=== PATIENT | female | born 1975 | race Caucasian/White ===

== ENCOUNTER 2019-05-13 22:33 | Emergency (ER) | payer OTHER ==
[~2019-05-13] VITALS: Ht 162.6 cm; Wt 53.5 kg
[2019-05-13] MEDS ORDERED: CLOP75 PO (22:48)
[2019-05-13] MEDS ORDERED: ASPI81CH PO (22:48)
== END 2019-05-13 23:58 | disposition home or self-care (01) ==
LOC: ER 22:33
DX: S62.632A Displaced fracture of distal phalanx of right middle finger, initial encounter for closed fracture (principal); Z88.5 Allergy status to narcotic agent; Z79.82 Long term (current) use of aspirin; Z79.899 Other long term (current) drug therapy; Z86.73 Personal history of transient ischemic attack (TIA), and cerebral infarction without residual deficits; W23.0XXA Caught, crushed, jammed, or pinched between moving objects, initial encounter
CPT/HCPCS: 29130; 73130; 99283-25

== ENCOUNTER 2019-07-21 00:08 | Emergency (ER) | payer OTHER ==
[~2019-07-21] VITALS: Ht 162.6 cm; Wt 52.6 kg
[~2019-07-21 00:08] MED LIST: ASPI81CH PO; CLOP75 PO
== END 2019-07-21 01:35 | disposition home or self-care (01) ==
LOC: ER 00:08
DX: S93.401A Sprain of unspecified ligament of right ankle, initial encounter (principal); Z88.5 Allergy status to narcotic agent; Z79.82 Long term (current) use of aspirin; Z79.899 Other long term (current) drug therapy; W01.0XXA Fall on same level from slipping, tripping and stumbling without subsequent striking against object, initial encounter
CPT/HCPCS: 73610; 99283-25

== ENCOUNTER → 2020-02-02 | Outpatient (CLI) | payer OTHER ==
[2020-02-02 14:19] LABS: Source, Urine Clean Catch
[2020-02-02 18:32] LABS: Bilirubin, Urine Neg (Neg); Blood, Urine 5+ (Neg); Glucose Qualitative, Urine Neg (Neg); Ketones, Urine Neg (Neg); Leukocyte Esterase, Urine Neg (Neg); Nitrite, Urine Neg (Neg); Protein, Urine Neg (Neg); Urobilinogen, Urine NORM (Normal)
[2020-02-02 18:44] LABS: Appearance, Urine Clear (Clear); Color, Urine Yellow (P-Yellow)
[2020-02-02 18:46] LABS: Squamous Epithelial Cells Rare /hpf (Few); White Blood Cells, Urine 0-2 /hpf (0-5)
[2020-02-02 18:47] LABS: Bacteria Not Seen /hpf; Urine Culture Indicated No (No)
== END | disposition home or self-care (01) ==
PROVIDERS: Nurse Practitioner Family
DX: R10.9 Unspecified abdominal pain (principal)

== ENCOUNTER → 2020-02-15 | Outpatient (CLI) | payer OTHER ==
[~2020-02-15] MED LIST changes: +IBUP400 PO
== END | disposition home or self-care (01) ==
LOC: LAB 14:42 → LAB SHORT 14:42
DX: R31.1 Benign essential microscopic hematuria (principal)
CPT/HCPCS: 87086

== ENCOUNTER 2020-02-17 12:20 | Emergency (ER) | payer OTHER ==
[~2020-02-17] VITALS: Ht 162.6 cm; Wt 51.7 kg
[~2020-02-17 12:20] MED LIST changes: -IBUP400 PO
[2020-02-17 13:15] LABS: BASOPHILS ABSOLUTE AUTO 0.07 K/mm3 (0.00-0.23); BASOPHILS PERCENT AUTO 1 % (0-2); EOSINOPHILS ABSOLUTE AUTO 0.18 K/mm3 (0.00-0.68); EOSINOPHILS PERCENT AUTO 3 % (0-6); Hematocrit 33.1 % (33.0-51.0); Hemoglobin 10.1 g/dL (11.5-16.0); IMMATURE GRAN ABSOLUTE AUTO 0.02 K/mm3 (0.00-0.10); IMMATURE GRAN PERCENT AUTO 0 % (0-1); LYMPHOCYTES ABSOLUTE AUTO 1.52 K/mm3 (0.84-5.20); LYMPHOCYTES PERCENT AUTO 26 % (21-46); MONOCYTES ABSOLUTE AUTO 0.44 K/mm3 (0.16-1.47); MONOCYTES PERCENT AUTO 8 % (4-13); Mean Corpuscular HGB 27.7 pg (26.0-34.0); Mean Corpuscular HGB Conc 30.5 g/dL (31.5-36.5); Mean Corpuscular Volume 91 fL (80-100); Mean Platelet Volume 9.8 fL (9.1-12.4); NEUTROPHILS ABSOLUTE AUTO 3.61 K/mm3 (1.96-9.15); NEUTROPHILS PERCENT AUTO 62 % (41-73); Platelet Count 382 K/mm3 (150-400); RDW Coefficient Variation 13.1 % (11.7-14.2); RDW Standard Deviation 43.3 fL (35.1-46.3); Red Blood Cell Count 3.64 M/mm3 (3.80-5.20); White Blood Cell Count 5.84 K/mm3 (4.00-11.30)
[2020-02-17 13:38] LABS: Alanine Aminotransfer (ALT/SGP 18 U/L (12-78); Albumin, Blood 3.8 g/dL (3.4-5.0); Alk Phos 63 U/L (50-136); Anion Gap 4 mmol/L (6-16); Aspartate Aminotrans (AST/SGOT 14 U/L (12-37); Bilirubin, Total 0.7 mg/dL (0.1-1.0); Blood Urea Nitrogen 9 mg/dL (8-24); Bun/Creatinine Ratio 18.6 (12.0-20.0); CO2, Blood 24 mmol/L (21-32); Calcium, Blood 8.5 mg/dL (8.5-10.1); Chloride, Blood 111 mmol/L (98-108); Creatinine, Blood 0.48 mg/dL (0.40-1.00); Globulin, Blood 3.9 g/dL (2.2-4.0); Glomerular Filtration Rate >60 (60-); Glucose, Blood 86 mg/dL (70-99); Potassium, Blood 3.7 mmol/L (3.5-5.5); Sodium, Blood 139 mmol/L (136-145); Total Protein, Blood 7.7 g/dL (6.4-8.2)
[2020-02-17 17:43] LABS: Source, Urine Clean Catch
[2020-02-17 17:51] LABS: Bilirubin, Urine Neg (Neg); Blood, Urine 5+ (Neg); Glucose Qualitative, Urine Neg (Neg); Ketones, Urine 1+ (Neg); Leukocyte Esterase, Urine Neg (Neg); Nitrite, Urine Neg (Neg); Protein, Urine 4+ (Neg); Specific Gravity, Urine 1.015 (1.003-1.022); Urobilinogen, Urine NORM (Normal)
[2020-02-17 18:00] LABS: Appearance, Urine Bloody (Clear); Color, Urine Red (P-Yellow)
[2020-02-17 18:02] LABS: Bacteria Few /hpf; Red Blood Cells, Urine TNTC /hpf (0-2); Squamous Epithelial Cells Few /hpf (Few)
[2020-02-17] MEDS ORDERED: IBUP400 PO (18:12)
== END 2020-02-17 18:18 | disposition home or self-care (01) ==
LOC: ER 12:20
PROVIDERS: Physician Assistant
DX: N92.0 Excessive and frequent menstruation with regular cycle (principal); Z88.5 Allergy status to narcotic agent; Z79.899 Other long term (current) drug therapy; Z79.82 Long term (current) use of aspirin; Z86.73 Personal history of transient ischemic attack (TIA), and cerebral infarction without residual deficits; Z87.891 Personal history of nicotine dependence
CPT/HCPCS: 36415; 76770; 80053; 81001; 81025; 83690; 85025; 87086; 99284-25

== ENCOUNTER → 2020-04-03 | Outpatient (CLI) | payer OTHER ==
[~2020-04-03] MED LIST changes: +IBUP400 PO
== END | disposition home or self-care (01) ==
LOC: LAB SHORT 08:07 → PLD 08:07
DX: D22.5 Melanocytic nevi of trunk (principal)
CPT/HCPCS: 88305

== ENCOUNTER → 2020-09-28 | Outpatient (CLI) | payer OTHER ==
[~2020-09-28] MED LIST changes: +CIPRO500 MG/51 PO; +ERGO50000 PO; +FLAGYL500 M1 PO; +IRON18 MG; +Simvastatin20 MG PO
[2020-09-28 17:18] LABS: BASOPHILS ABSOLUTE AUTO 0.06 K/mm3 (0.00-0.23); BASOPHILS PERCENT AUTO 1 % (0-2); EOSINOPHILS ABSOLUTE AUTO 0.07 K/mm3 (0.00-0.68); EOSINOPHILS PERCENT AUTO 1 % (0-6); Hematocrit 31.6 % (33.0-51.0); Hemoglobin 9.7 g/dL (11.5-16.0); IMMATURE GRAN ABSOLUTE AUTO 0.02 K/mm3 (0.00-0.10); IMMATURE GRAN PERCENT AUTO 0 % (0-1); LYMPHOCYTES ABSOLUTE AUTO 1.77 K/mm3 (0.84-5.20); LYMPHOCYTES PERCENT AUTO 27 % (21-46); MONOCYTES ABSOLUTE AUTO 0.33 K/mm3 (0.16-1.47); MONOCYTES PERCENT AUTO 5 % (4-13); Mean Corpuscular HGB 25.6 pg (26.0-34.0); Mean Corpuscular HGB Conc 30.7 g/dL (31.5-36.5); Mean Corpuscular Volume 83 fL (80-100); Mean Platelet Volume 10.1 fL (9.1-12.4); NEUTROPHILS ABSOLUTE AUTO 4.37 K/mm3 (1.96-9.15); NEUTROPHILS PERCENT AUTO 66 % (41-73); Platelet Count 377 K/mm3 (150-400); RDW Standard Deviation 45.2 fL (35.1-46.3); Red Blood Cell Count 3.79 M/mm3 (3.80-5.20); White Blood Cell Count 6.62 K/mm3 (4.00-11.30)
[2020-09-28 17:35] LABS: Alanine Aminotransfer (ALT/SGP 25 U/L (12-78); Albumin, Blood 4.2 g/dL (3.4-5.0); Albumin/Globulin Ratio 1.1 (0.8-1.8); Alk Phos 67 U/L (40-126); Anion Gap 9 mmol/L (6-16); Aspartate Aminotrans (AST/SGOT 16 U/L (12-37); Bilirubin, Total 0.3 mg/dL (0.1-1.0); Blood Urea Nitrogen 9 mg/dL (8-24); CO2, Blood 26 mmol/L (21-32); Calcium, Blood 8.9 mg/dL (8.5-10.1); Chloride, Blood 103 mmol/L (98-108); Globulin, Blood 3.8 g/dL (2.2-4.0); Glomerular Filtration Rate >60 (60-); Glucose, Blood 97 mg/dL (70-99); Potassium, Blood 3.7 mmol/L (3.5-5.5); Sodium, Blood 138 mmol/L (136-145); Thyroid Stimulating Hormone 1.619 uIU/mL (0.360-4.800)
[2020-09-28 19:42] LABS: Percent Saturation 3.8 % (15.0-50.0)
== END | disposition home or self-care (01) ==
LOC: EFM RAD 17:10
PROVIDERS: Chiropractor
DX: R07.89 Other chest pain (principal); R53.83 Other fatigue; D64.9 Anemia, unspecified
CPT/HCPCS: 80053; 82728; 83540; 83550; 84443; 84484; 85025; 85060; 85379

== ENCOUNTER 2020-10-13 10:28 | Emergency (ER) | payer OTHER ==
[~2020-10-13] VITALS: Ht 170.2 cm; Wt 54.4 kg
[~2020-10-13 10:28] MED LIST changes: -CIPRO500 MG/51 PO; -ERGO50000 PO; -FLAGYL500 M1 PO; -IRON18 MG; -Simvastatin20 MG PO
[2020-10-13 10:58] LABS: BASOPHILS ABSOLUTE AUTO 0.05 K/mm3 (0.00-0.23); BASOPHILS PERCENT AUTO 1 % (0-2); EOSINOPHILS ABSOLUTE AUTO 0.06 K/mm3 (0.00-0.68); EOSINOPHILS PERCENT AUTO 1 % (0-6); Hematocrit 31.8 % (33.0-51.0); Hemoglobin 9.3 g/dL (11.5-16.0); IMMATURE GRAN ABSOLUTE AUTO 0.01 K/mm3 (0.00-0.10); IMMATURE GRAN PERCENT AUTO 0 % (0-1); LYMPHOCYTES ABSOLUTE AUTO 1.39 K/mm3 (0.84-5.20); LYMPHOCYTES PERCENT AUTO 22 % (21-46); MONOCYTES ABSOLUTE AUTO 0.39 K/mm3 (0.16-1.47); MONOCYTES PERCENT AUTO 6 % (4-13); Mean Corpuscular HGB 24.9 pg (26.0-34.0); Mean Corpuscular HGB Conc 29.2 g/dL (31.5-36.5); Mean Corpuscular Volume 85 fL (80-100); Mean Platelet Volume 9.3 fL (9.1-12.4); NEUTROPHILS ABSOLUTE AUTO 4.46 K/mm3 (1.96-9.15); NEUTROPHILS PERCENT AUTO 70 % (41-73); Platelet Count 408 K/mm3 (150-400); RDW Coefficient Variation 14.4 % (11.7-14.2); RDW Standard Deviation 44.5 fL (35.1-46.3); Red Blood Cell Count 3.73 M/mm3 (3.80-5.20); White Blood Cell Count 6.36 K/mm3 (4.00-11.30)
[2020-10-13 11:16] LABS: Alanine Aminotransfer (ALT/SGP 42 U/L (12-78); Albumin, Blood 3.9 g/dL (3.4-5.0); Alk Phos 83 U/L (50-136); Anion Gap 6 mmol/L (6-16); Aspartate Aminotrans (AST/SGOT 26 U/L (12-37); Bilirubin, Total 0.7 mg/dL (0.1-1.0); Blood Urea Nitrogen 10 mg/dL (8-24); Bun/Creatinine Ratio 20.8 (12.0-20.0); CO2, Blood 27 mmol/L (21-32); Calcium, Blood 8.7 mg/dL (8.5-10.1); Chloride, Blood 108 mmol/L (98-108); Creatinine, Blood 0.48 mg/dL (0.40-1.00); Globulin, Blood 4.1 g/dL (2.2-4.0); Glomerular Filtration Rate >60 (60-); Glucose, Blood 115 mg/dL (70-99); Potassium, Blood 3.7 mmol/L (3.5-5.5); Sodium, Blood 141 mmol/L (136-145)
[2020-10-13 12:25] LABS: Source, Urine Clean Catch
[2020-10-13 12:38] LABS: Appearance, Urine Clear (Clear); Bilirubin, Urine Neg (Neg); Blood, Urine 1+ (Neg); Color, Urine Yellow (P-Yellow); Glucose Qualitative, Urine Neg (Neg); Ketones, Urine Neg (Neg); Leukocyte Esterase, Urine 1+ (Neg); Nitrite, Urine Neg (Neg); Protein, Urine Neg (Neg); Specific Gravity, Urine 1.025 (1.003-1.022); Urobilinogen, Urine NORM (Normal)
[2020-10-13 12:51] LABS: Bacteria Many /hpf; Red Blood Cells, Urine 0-2 /hpf (0-2); Squamous Epithelial Cells Mod /hpf (Few)
[2020-10-13] MEDS ORDERED: IRON18 MG (13:17)
[2020-10-13] MEDS ORDERED: ERGO50000 PO (13:17)
[2020-10-13] MEDS ORDERED: FLAGYL500 M1 PO (15:53)
[2020-10-13] MEDS ORDERED: CIPRO500 MG/51 PO (15:53)
== END 2020-10-13 16:05 | disposition home or self-care (01) ==
LOC: ER 10:28
PROVIDERS: Physician Assistant
DX: N39.0 Urinary tract infection, site not specified (principal); N20.0 Calculus of kidney; N83.202 Unspecified ovarian cyst, left side; D64.9 Anemia, unspecified; Z79.02 Long term (current) use of antithrombotics/antiplatelets; Z79.82 Long term (current) use of aspirin; Z79.899 Other long term (current) drug therapy; Z88.5 Allergy status to narcotic agent
CPT/HCPCS: 36415; 74176; 76830; 76856; 80053; 81001; 81025; 83690; 85025; 87086; 99284-25; A9270

== ENCOUNTER 2020-10-16 09:09 | Day surgery (SDC) | payer OTHER ==
[~2020-10-16 09:09] MED LIST changes: +CIPRO500 MG/51 PO; +ERGO50000 PO; +FLAGYL500 M1 PO; +IRON18 MG
== END 2020-10-16 23:45 ==
LOC: MOI MAM 09:09 → MOI US 09:30 → MOI MAM 23:45
DX: D24.1 Benign neoplasm of right breast (principal)
CPT/HCPCS: 19083; 19285; 77065; 88305

== ENCOUNTER 2020-11-08 11:54 | Day surgery (SDC) | payer OTHER ==
[~2020-11-08] VITALS: Ht 162.6 cm; Wt 51.7 kg
== END 2020-11-08 15:15 | disposition home or self-care (01) ==
LOC: ORSCSDS 11:54
PROVIDERS: Surgery
PROC: 0HBT0ZX Excision of Right Breast, Open Approach, Diagnostic (ICD-10-PCS; principal; 2020-11-08 13:00)
DX: D24.1 Benign neoplasm of right breast (principal); Z86.73 Personal history of transient ischemic attack (TIA), and cerebral infarction without residual deficits; Z79.82 Long term (current) use of aspirin; Z79.01 Long term (current) use of anticoagulants
CPT/HCPCS: 88305; J0690; J1100; J1885; J2250; J2405; J2704; J3010; J7120

== ENCOUNTER 2021-03-28 17:56 | Emergency (ER) | payer OTHER ==
[~2021-03-28] VITALS: Ht 160 cm; Wt 52.6 kg
[2021-03-28 18:53] LABS: BASOPHILS ABSOLUTE AUTO 0.08 K/mm3 (0.00-0.23); BASOPHILS PERCENT AUTO 1 % (0-2); EOSINOPHILS ABSOLUTE AUTO 0.13 K/mm3 (0.00-0.68); EOSINOPHILS PERCENT AUTO 2 % (0-6); Hematocrit 36.3 % (33.0-51.0); Hemoglobin 11.8 g/dL (11.5-16.0); IMMATURE GRAN ABSOLUTE AUTO 0.02 K/mm3 (0.00-0.10); IMMATURE GRAN PERCENT AUTO 0 % (0-1); LYMPHOCYTES PERCENT AUTO 27 % (21-46); MONOCYTES PERCENT AUTO 6 % (4-13); Mean Corpuscular HGB 30.2 pg (26.0-34.0); Mean Corpuscular HGB Conc 32.5 g/dL (31.5-36.5); Mean Corpuscular Volume 93 fL (80-100); Mean Platelet Volume 9.1 fL (9.1-12.4); NEUTROPHILS ABSOLUTE AUTO 4.18 K/mm3 (1.96-9.15); NEUTROPHILS PERCENT AUTO 63 % (41-73); Platelet Count 365 K/mm3 (150-400); RDW Coefficient Variation 11.9 % (11.7-14.2); RDW Standard Deviation 40.9 fL (35.1-46.3); Red Blood Cell Count 3.91 M/mm3 (3.80-5.20); White Blood Cell Count 6.61 K/mm3 (4.00-11.30)
[2021-03-28 19:31] LABS: Alanine Aminotransfer (ALT/SGP 29 U/L (12-78); Albumin/Globulin Ratio 1.1 (0.8-1.8); Alk Phos 71 U/L (50-136); Anion Gap 3 mmol/L (6-16); Aspartate Aminotrans (AST/SGOT 17 U/L (12-37); Bilirubin, Total 0.5 mg/dL (0.1-1.0); Blood Urea Nitrogen 6 mg/dL (8-24); Bun/Creatinine Ratio 14.6 (12.0-20.0); CO2, Blood 30 mmol/L (21-32); Calcium, Blood 9.1 mg/dL (8.5-10.1); Chloride, Blood 108 mmol/L (98-108); Creatinine, Blood 0.41 mg/dL (0.40-1.00); Globulin, Blood 3.6 g/dL (2.2-4.0); Glomerular Filtration Rate >60 (60-); Glucose, Blood 114 mg/dL (70-99); Potassium, Blood 3.3 mmol/L (3.5-5.5); Sodium, Blood 141 mmol/L (136-145); Total Protein, Blood 7.6 g/dL (6.4-8.2)
[2021-03-28] MEDS ORDERED: Simvastatin20 MG PO (19:50)
== END 2021-03-28 21:51 | disposition home or self-care (01) ==
LOC: ER 17:56
PROVIDERS: Physician Assistant
DX: N93.9 Abnormal uterine and vaginal bleeding, unspecified (principal); Z79.02 Long term (current) use of antithrombotics/antiplatelets; Z88.5 Allergy status to narcotic agent; Z79.82 Long term (current) use of aspirin; Z79.899 Other long term (current) drug therapy; Z87.891 Personal history of nicotine dependence
CPT/HCPCS: 36415; 76830; 76856; 80053; 81025; 85025; 99284-25; A9270

== ENCOUNTER → 2023-10-29 | Outpatient (CLI) | payer OTHER ==
[~2023-10-29] MED LIST changes: +Simvastatin20 MG PO
== END | disposition home or self-care (01) ==
LOC: LAB SHORT 10:32 → LAB 10:32
DX: R30.0 Dysuria (principal)
CPT/HCPCS: 87077; 87086; 87186

== ENCOUNTER → 2023-11-07 | Outpatient (CLI) | payer OTHER ==
[2023-11-07 17:07] LABS: Bacterial Vaginosis PCR Negative (NEGATIVE); Candida Group, PCR NOT DETECTED (NOT DETECT); Candida glabrata-krusei, PCR NOT DETECTED (NOT DETECT)
== END ==
LOC: LAB SHORT 11:20
PROVIDERS: Student in an Organized Health Care Education/Training Program
DX: R30.0 Dysuria (principal)
CPT/HCPCS: 87086; 87481; 87661; 87801

== ENCOUNTER → 2024-09-13 | Outpatient (CLI) | payer OTHER ==
[2024-09-13 11:43] LABS: BASOPHILS ABSOLUTE AUTO 0.06 K/mm3 (0.00-0.23); BASOPHILS PERCENT AUTO 2 % (0-2); EOSINOPHILS ABSOLUTE AUTO 0.28 K/mm3 (0.00-0.68); EOSINOPHILS PERCENT AUTO 7 % (0-6); Hematocrit 35.2 % (33.0-51.0); Hemoglobin 11.2 g/dL (11.5-16.0); IMMATURE GRAN ABSOLUTE AUTO 0.01 K/mm3 (0.00-0.10); IMMATURE GRAN PERCENT AUTO 0 % (0-1); LYMPHOCYTES ABSOLUTE AUTO 1.26 K/mm3 (0.84-5.20); LYMPHOCYTES PERCENT AUTO 31 % (21-46); MONOCYTES ABSOLUTE AUTO 0.24 K/mm3 (0.16-1.47); MONOCYTES PERCENT AUTO 6 % (4-13); Mean Corpuscular HGB 28.6 pg (26.0-34.0); Mean Corpuscular HGB Conc 31.8 g/dL (31.5-36.5); Mean Corpuscular Volume 90 fL (80-100); Mean Platelet Volume 9.2 fL (9.1-12.4); NEUTROPHILS ABSOLUTE AUTO 2.21 K/mm3 (1.96-9.15); NEUTROPHILS PERCENT AUTO 55 % (41-73); Platelet Count 398 K/mm3 (150-400); RDW Coefficient Variation 15.4 % (11.7-14.2); RDW Standard Deviation 50.4 fL (35.1-46.3); Red Blood Cell Count 3.91 M/mm3 (3.80-5.20); White Blood Cell Count 4.06 K/mm3 (4.00-11.30)
[2024-09-13 12:00] LABS: Albumin, Blood 4.1 g/dL (3.4-5.0); Albumin/Globulin Ratio 1.2 (0.8-1.8); Bilirubin, Total 0.5 mg/dL (0.1-1.0); Calcium, Blood 8.9 mg/dL (8.5-10.1); Creatinine, Blood 0.55 mg/dL (0.40-1.00); Globulin, Blood 3.5 g/dL (2.2-4.0); Potassium, Blood 3.9 mmol/L (3.5-5.5); Total Protein, Blood 7.6 g/dL (6.4-8.2)
== END ==
LOC: LAB SHORT 11:37 → LAB 11:37
PROVIDERS: Physician Assistant
DX: R07.9 Chest pain, unspecified (principal)
CPT/HCPCS: 80053; 83690; 84484; 85025; 85379

== ENCOUNTER → 2024-09-21 | Outpatient (CLI) | payer OTHER ==
[2024-09-21 17:24] LABS: Bacterial Vaginosis PCR Negative (NEGATIVE); Candida Group, PCR NOT DETECTED (NOT DETECT); Candida glabrata-krusei, PCR NOT DETECTED (NOT DETECT)
== END ==
LOC: LAB 14:14 → LAB SHORT 14:14
PROVIDERS: Nurse Practitioner Family
DX: N94.9 Unspecified condition associated with female genital organs and menstrual cycle (principal)
CPT/HCPCS: 81515

== ENCOUNTER 2025-05-23 14:55 | Emergency (ER) | payer OTHER ==
[~2025-05-23] VITALS: Ht 160 cm; Wt 61.2 kg
[2025-05-23 16:11] LABS: BASOPHILS ABSOLUTE AUTO 0.08 K/mm3 (0.00-0.23); BASOPHILS PERCENT AUTO 1 % (0-2); EOSINOPHILS ABSOLUTE AUTO 0.34 K/mm3 (0.00-0.68); EOSINOPHILS PERCENT AUTO 5 % (0-6); Hematocrit 38.6 % (33.0-51.0); Hemoglobin 13.0 g/dL (11.5-16.0); IMMATURE GRAN ABSOLUTE AUTO 0.01 K/mm3 (0.00-0.10); IMMATURE GRAN PERCENT AUTO 0 % (0-1); LYMPHOCYTES ABSOLUTE AUTO 2.21 K/mm3 (0.84-5.20); LYMPHOCYTES PERCENT AUTO 31 % (21-46); MONOCYTES ABSOLUTE AUTO 0.30 K/mm3 (0.16-1.47); MONOCYTES PERCENT AUTO 4 % (4-13); Mean Corpuscular HGB Conc 33.7 g/dL (31.5-36.5); Mean Corpuscular Volume 91 fL (80-100); NEUTROPHILS ABSOLUTE AUTO 4.28 K/mm3 (1.96-9.15); NEUTROPHILS PERCENT AUTO 59 % (41-73); NRBC ABSOLUTE 0.00 K/mm3 (0.00-0.02); NRBC Auto 0.0 /100 WBC (0.0-0.2); RDW Coefficient Variation 11.9 % (11.7-14.2); RDW Standard Deviation 39.1 fL (35.1-46.3)
[2025-05-23 16:16] LABS: Source, Urine Clean Catch
[2025-05-23 16:27] LABS: Alanine Aminotransfer (ALT/SGP 36.0 U/L (12-78); Albumin, Blood 4.2 g/dL (3.4-5.0); Albumin/Globulin Ratio 1.2 (0.8-1.8); Anion Gap 7.0 mmol/L (3-11); Aspartate Aminotrans (AST/SGOT 26.0 U/L (12-37); Bilirubin, Total 0.5 mg/dL (0.1-1.0); Blood Urea Nitrogen 8.0 mg/dL (8-24); CO2, Blood 29.0 mmol/L (21-32); Calcium, Blood 9.5 mg/dL (8.5-10.1); Chloride, Blood 108.0 mmol/L (98-108); Creatinine, Blood 0.47 mg/dL (0.40-1.00); Globulin, Blood 3.5 g/dL (2.2-4.0); Glucose, Blood 106.0 mg/dL (70-99); Potassium, Blood 3.7 mmol/L (3.5-5.5); Sodium, Blood 140.0 mmol/L (136-145); Total Protein, Blood 7.7 g/dL (6.4-8.2)
[2025-05-23 16:28] LABS: Bilirubin, Urine Neg (Neg); Glucose Qualitative, Urine Neg (Neg); Ketones, Urine Neg (Neg); Leukocyte Esterase, Urine 1+ (Neg); Protein, Urine Neg (Neg); Specific Gravity, Urine 1.010 (1.003-1.022); Urobilinogen, Urine NORM (Normal)
[2025-05-23 16:45] LABS: Platelet Count 351 K/mm3 (150-400)
[2025-05-23 16:51] LABS: Color, Urine Pale Yellow (P-Yellow)
[2025-05-23 16:52] LABS: Red Blood Cells, Urine 0-2 /hpf (0-2)
[2025-05-23] MEDS ORDERED: AMLO5 (18:38)
[2025-05-23 19:30] VITALS: BP 128/67
== END 2025-05-23 20:40 | disposition home or self-care (01) ==
LOC: ER 14:55
PROVIDERS: Student in an Organized Health Care Education/Training Program
DX: R60.0 Localized edema (principal); R07.89 Other chest pain; R06.02 Shortness of breath; Z86.73 Personal history of transient ischemic attack (TIA), and cerebral infarction without residual deficits; Z88.5 Allergy status to narcotic agent; Z79.82 Long term (current) use of aspirin; Z79.899 Other long term (current) drug therapy
CPT/HCPCS: 71046; 80053; 81001; 83690; 83880; 84484; 85025; 85379; 87086; 93005; 93010; 99285-25

== ENCOUNTER → 2025-07-09 | Outpatient (CLI) | payer OTHER ==
[~2025-07-09] MED LIST changes: +AMLO5
[2025-07-10 08:36] LABS: Influenza A/2009-H1 Not Detected (NOT DETECT); SARS-Cov-2 (COVID-19), BioFire Not Detected (NOT DETECT)
== END ==
LOC: LAB SHORT 19:26 → LAB 19:26
PROVIDERS: Nurse Practitioner Family
DX: R05.1 Acute cough (principal)
CPT/HCPCS: 0202U

== ENCOUNTER 2025-09-11 12:22 | Emergency (ER) | payer OTHER ==
[~2025-09-11] VITALS: Ht 160 cm; Wt 59.9 kg
[2025-09-11 12:25] VITALS: BP 109/55
[2025-09-11 12:52] LABS: BASOPHILS ABSOLUTE AUTO 0.10 K/mm3 (0.00-0.23); BASOPHILS PERCENT AUTO 1 % (0-2); EOSINOPHILS ABSOLUTE AUTO 0.35 K/mm3 (0.00-0.68); EOSINOPHILS PERCENT AUTO 3 % (0-6); Hematocrit 41.9 % (33.0-51.0); Hemoglobin 13.5 g/dL (11.5-16.0); IMMATURE GRAN ABSOLUTE AUTO 0.05 K/mm3 (0.00-0.10); IMMATURE GRAN PERCENT AUTO 1 % (0-1); LYMPHOCYTES ABSOLUTE AUTO 1.79 K/mm3 (0.84-5.20); LYMPHOCYTES PERCENT AUTO 17 % (21-46); MONOCYTES ABSOLUTE AUTO 0.34 K/mm3 (0.16-1.47); MONOCYTES PERCENT AUTO 3 % (4-13); Mean Corpuscular HGB Conc 32.2 g/dL (31.5-36.5); Mean Corpuscular Volume 93 fL (80-100); NEUTROPHILS ABSOLUTE AUTO 7.75 K/mm3 (1.96-9.15); NEUTROPHILS PERCENT AUTO 75 % (41-73); NRBC ABSOLUTE 0.00 K/mm3 (0.00-0.02); NRBC Auto 0.0 /100 WBC (0.0-0.2); Platelet Count 303 K/mm3 (150-400); RDW Coefficient Variation 11.7 % (11.7-14.2); RDW Standard Deviation 39.7 fL (35.1-46.3)
[2025-09-11 13:18] LABS: Alanine Aminotransfer (ALT/SGP 34.0 U/L (12-78); Albumin, Blood 4.4 g/dL (3.4-5.0); Albumin/Globulin Ratio 1.2 (0.8-1.8); Anion Gap 11.0 mmol/L (3-11); Aspartate Aminotrans (AST/SGOT 20.0 U/L (12-37); Bilirubin, Total 0.6 mg/dL (0.1-1.0); Blood Urea Nitrogen 11.0 mg/dL (8-24); CO2, Blood 25.0 mmol/L (21-32); Calcium, Blood 9.0 mg/dL (8.5-10.1); Chloride, Blood 106.0 mmol/L (98-108); Creatinine, Blood 0.52 mg/dL (0.40-1.00); Globulin, Blood 3.7 g/dL (2.2-4.0); Glucose, Blood 130.0 mg/dL (70-99); Potassium, Blood 3.6 mmol/L (3.5-5.5); Sodium, Blood 138.0 mmol/L (136-145); Total Protein, Blood 8.1 g/dL (6.4-8.2)
[2025-09-11 15:42] LABS: Source, Urine Clean Catch
[2025-09-11 15:49] LABS: Bilirubin, Urine Neg (Neg); Color, Urine Yellow (P-Yellow); Glucose Qualitative, Urine Neg (Neg); Ketones, Urine 1+ (Neg); Leukocyte Esterase, Urine 1+ (Neg); Protein, Urine 2+ (Neg); Specific Gravity, Urine 1.020 (1.003-1.022); Urobilinogen, Urine NORM (Normal)
== END 2025-09-11 18:00 | disposition left against medical advice (07) ==
LOC: ER 12:22
PROVIDERS: Emergency Medicine
DX: R10.A2 Flank pain, left side (principal); M54.9 Dorsalgia, unspecified; Z53.21 Procedure and treatment not carried out due to patient leaving prior to being seen by health care provider; Z87.442 Personal history of urinary calculi
CPT/HCPCS: 36415; 80053; 81001; 85025; 87086; 99283